=== PATIENT | female | born 1995 | race Two or more races ===

== ENCOUNTER → 2024-02-15 12:30 | Outpatient (REF) | payer SELFPAY | LOC: HWRAD 12:30 | PROVIDERS: ATTENDING PHYSICIAN Chiropractor | DX: S39.012A Strain of muscle, fascia and tendon of lower back, initial encounter (principal) | CPT/HCPCS: 72110 ==

== ENCOUNTER 2025-06-11 12:03 | Emergency (ER) | payer SELFPAY ==
[2025-06-11 12:11] VITALS: BP 147/99
[2025-06-11 12:40] LABS: Hematocrit 43.0 % (37.0-47.0); Hemoglobin 14.3 g/dL (12.0-16.0); Mean Corp Hgb Conc. 33.3 g/dL (33.0-37.0); Mean Corpuscular Volume 80.2 fL (81.0-99.0); Nucleated Red Blood Cells % 0 %; Platelet Count 415 10^3/uL (130-400); Red Cell Dist. Width 13.2 % (11.5-14.5)
[2025-06-11 13:09] LABS: HCG, Serum Qualitative Screen Negative
[2025-06-11 13:17] LABS: ALT (SGPT) 20 U/L (0-35); AST (SGOT) 22 U/L (14-36); Albumin 5.0 g/dl (3.5-5.0); Alkaline Phosphatase 89 U/L (38-126); Blood Urea Nitrogen 8 mg/dl (7-17); Calcium 9.8 mg/dl (8.4-10.2); Carbon Dioxide 18 mmol/L (22-30); Chloride 107 mmol/L (98-107); Glucose 92 mg/dl (70-99); Potassium 4.1 mmol/L (3.5-5.1); Sodium 139 mmol/L (135-145); Total Protein 9.0 g/dl (6.3-8.2); eGFR > 60.00
[2025-06-11 16:40] VITALS: BP 129/84
--- NOTE | 2025-06-11 16:44 | ED.GENMED ---
History of Present Illness
General
Chief Complaint: Vaginal Bleeding
Source: patient
Time Seen by Provider: 06/11/25 16:08
History of Present Illness
History of Present Illness:
30-year-old female with past medical history of PCOS, anxiety and bipolar disorder presents to the emergency department for evaluation of vaginal bleeding that has been waxing and waning since January noting that in March she had 1 positive
test and 2 subsequent negative tests, shortly thereafter had vaginal bleeding for 23 days with resolution of the bleeding but again in April and June she has had breakthrough bleeding over extended periods of time, contacted
her [employer] today and was recommended to come to the ER. She denies any fevers or infectious symptoms, lightheadedness or dizziness, chest pain or shortness of breath. Patient states that she is sexually active but does not have concern for
at this time.
Past History
Past History
ED Past Medical History: Asthma, Psychiatric and Other
ED Past Surgical History: Other
Social History
Tobacco: Former smoker
Alcohol: None
Drug: None
Personal: Partner
Living: with family
Review of Systems
Review of Systems
All Other Systems: ROS reviewed and negative except as documented in HPI and ROS
Phy Exam
Physical Exam
Physical Exam:
GENERAL: Alert , in no apparent distress
HEAD: Normocephalic atraumatic
EYE: conjunctiva clear
NECK: Supple, no significant adenopathy.
ENT: o/p clr, mmm.
CARDIAC: Regular rate and rhythm
LUNGS: Clear breath sounds bilaterally, no acute respiratory distress, no wheezes/rales/rhonchi
NEUROLOGICAL: Alert and oriented
SKIN: Warm and dry, skin intact.
MUSCULOSKELETAL: well perfused.
PSYCH: Normal and appropriate interaction.
Course
Orders/Labs/Results
Orders:
Orders
06/11/25 12:17
Test Result ONCE
06/11/25 12:30
Complete Blood Count/With Diff Urgent
Comprehensive Metabolic Panel Urgent
HCG, Serum Qualitative Screen Urgent
06/11/25 14:59
US Pelvis W Transvag Combined Urgent
Reason For Exam: lower abdominal pain vaginal bleeding
Abnormal Lab Results
06/11/25
12:30
MCV 80.2 L fL
(81.0-99.0)
MCH 26.7 L pg
(27.0-31.0)
Plt Count 415 H 10^3/uL
(130-400)
Carbon Dioxide 18 L mmol/L
(22-30)
Total Protein 9.0 H g/dl
(6.3-8.2)
06/11/25 12:30
06/11/25 12:30
Vital Signs
Initial and Last Documented VS:
Initial Vital Signs
Temp Pulse Resp BP Pulse Ox
98.3 F 80 16 147/99 99
06/11/25 12:11 06/11/25 12:11 06/11/25 12:11 06/11/25 12:11 06/11/25 12:11
Last Documented Vital Signs
Temp Pulse Resp BP Pulse Ox
98.3 F 79 20 129/84 99
06/11/25 12:11 06/11/25 16:40 06/11/25 16:40 06/11/25 16:40 06/11/25 16:46
MDM/Problems Addressed
Differential Diagnosis Includes:
PCOS
Menometrorrhagia
Anemia
MDM/Problems Addressed:
30-year-old female presenting to the ER for evaluation of intermittent and breakthrough bleeding that is worsened since March following a possible miscarriage. At this time patient is without any other specific concerns. Labs and ultrasound
had been ordered in triage, hemoglobin greater than 14. Ultrasound with bilateral nabothian cysts but otherwise unremarkable. I did have an extensive conversation with patient in regards to possible medications that could be used including Lysteda
or Aygestin to get the bleeding under control however patient declines and states that she would just like to follow-up with her [employer]. She is aware of return precautions to the ER.
*Radiology
Radiology exam reviewed: radiology read reviewed
*Pulse Oximetry
SaO2: 99
Oxygen Mode of Delivery: Room air
Patient hypoxic: no
*Critical Care Note
Total Time (30-74mins, 75-104mins- exclusive of procedures): Not Applicable
ED Attending Note
-
Portions of this chart may have been created with voice recognition software.� Occasional wrong word or��sound alike� substitutions may have occurred due to the inherent limitations of voice recognition software.
Discharge Plan
Departure
Patient Disposition: Home (Routine Discharge)
Date of Disposition: 06/11/25
Time of Disposition: 16:44
Patient with high blood pressure during this ER visit?: Yes
Discharge Problem:
Dysfunctional uterine bleeding
Instructions: Bleeding between periods
Referrals:
NONE,* [Family Provider, Internal Medicine]
Interventions
Interventions:
*Risk Screen - Suicide Last Done: 06/11/25 12:11
*General Assessment Last Done: 06/11/25 12:11
*Neglect/Abuse Screening Last Done: 06/11/25 16:55
*ED COVID-19 Vaccine History Last Done: 06/11/25 12:11
*ED Influenza Vaccine History Last Done: 06/11/25 12:11
*Nursing Disposition Last Done: 06/11/25 16:55
ED-Female Genitourinary Assessment Last Done: 06/11/25 16:40
Discharge Date and Time
Discharge Date/Time: 06/11/25 16:55
Print Language: SAMI
== END 2025-06-11 16:55 | disposition home or self-care (01) ==
LOC: EMR 12:03
PROVIDERS: Emergency Medicine; EMERGENCY PHYSICIAN Student in an Organized Health Care Education/Training Program
DX: N93.8 Other specified abnormal uterine and vaginal bleeding (principal); N88.8 Other specified noninflammatory disorders of cervix uteri; J45.909 Unspecified asthma, uncomplicated; E28.2 Polycystic ovarian syndrome; F31.9 Bipolar disorder, unspecified; F41.9 Anxiety disorder, unspecified; Z87.891 Personal history of nicotine dependence
CPT/HCPCS: 99284; 76830; 76856; 80053; 84703; 85025